=== PATIENT | female | born 1965 | race Caucasian/White ===

== ENCOUNTER 2019-10-22 14:53 | Emergency (ER) | payer OTHER ==
[~2019-10-22] VITALS: Ht 160 cm; Wt 72.6 kg
[2019-10-22 15:03] VITALS: BP 127/70
--- NOTE | 2019-10-22 15:15 | NUR ---
54 Y/O FEMALE BIBA FROM [facility] FOR ONE EPISODE OF UNWITNESSED SYNCOPE TODAY. PT STATES SHE WALKED TO [employer] IN THE MORNING AROUND 10AM, AND FELT VERY WEAK AND TIRED BY THE TIME SHE BEGAN WALKING BACK HOME. UPON ARRIVAL TO HER HOME, PATIENT FELT DIZZY AND ATTEMPTED TO WALK TO HER BED, BUT BELIEVES SHE PASSED OUT BEFORE GETTING TO BED. PATIENT HAS VISIBLE CREASE INDENTATIONS ON BILAT UPPER ARMS, AND IS UNAWARE OF HOW LONG SHE WAS DOWN ON FLOOR FOR. NO NEURO DEFECITS NOTED, PATIENT HAS EQUAL MILD WEAKNESS BUE. PATIENT STATES THAT LEFT SHOULDER IS GIVING HER 6/10 PAIN, BUT IS ABLE TO PERFORM ROM. LAC NOTED ON LEFT THUMB, PATIENT STATES SHE CUT HER FINGER YESTERDAY WHILE CUTTING FRUIT. RESP EQUAL AND UNLABORED. NSR TACHY. PMH:DM2, STROKE ALLERGIES: CODEINE, IBUPROFEN
[2019-10-22] MEDS ORDERED: traMADol 50 MG TAB PO ONE (15:35)
[2019-10-22] MEDS ORDERED: SULFAMETH/TRIMETH DS 800/160MG 1 TAB PO ONE (15:35)
[2019-10-22] MEDS ORDERED: NACL 0.9% 500 ML IV ONE (15:35)
[2019-10-22 15:58] LABS: BASOPHILS % (AUTO) 0.3 % (0.0-2.0); EOSINOPHILS # (AUTO) 0.1 K/uL (0-0.4); EOSINOPHILS % (AUTO) 1.2 % (0.0-4.0); HEMATOCRIT 34.2 % (36-48); HEMOGLOBIN 10.7 g/dL (12.0-16.0); LYMPHOCYTES # (AUTO) 1.9 K/uL (2.5-16.5); LYMPHOCYTES % (AUTO) 23.8 % (20.5-51.1); MEAN CORPUSCULAR HEMOGLOBIN 25 pg (27-31); MEAN CORPUSCULAR HGB CONC 31 g/dL (33-37); MEAN CORPUSCULAR VOLUME 80.1 fL (80-94); MONOCYTES # (AUTO) 0.5 K/uL (0.8-1.0); MONOCYTES % (AUTO) 5.7 % (1.7-9.3); NEUTROPHILS # (AUTO) 5.6 K/uL (1.8-7.7); PLATELET COUNT (AUTO) 122 K/uL (140-450); RED BLOOD CELL COUNT(AUTO) 4.27 MIL/uL (4.20-5.40); RED CELL DISTRIBUTION WIDTH 17.5 % (11.6-13.7); WHITE BLOOD COUNT (AUTO) 8.1 K/uL (4.8-10.8)
[2019-10-22 16:16] LABS: ALBUMIN 3.2 g/dL (3.4-5.0); ANION GAP 14.6 (8-16); CARBON DIOXIDE 26.8 mmol/L (21-32); CREATININE 1.2 mg/dL (0.6-1.3); POTASSIUM 4.4 mmol/L (3.5-5.1); TOTAL BILIRUBIN 0.3 mg/dL (0.0-1.0)
[2019-10-22 16:53] VITALS: BP 125/69
--- NOTE | 2019-10-22 16:53 | NUR ---
Patient discharged with v/s stable. Written and verbal after care instructions given and explained. Patient alert, oriented and verbalized understanding of instructions. Ambulatory with steady gait. All questions addressed prior to discharge. ID band removed. Patient advised to follow up with PMD. Rx of KEFLEX, TRAMADOL given. Patient educated on indication of medication including possible reaction and side effects. Opportunity to ask questions provided and answered.
--- NOTE | 2019-10-25 08:54 | NUR ---
LATE ENTRY-CONFIRMED WITH RN NS INFUSION COMPLETED AT 1640 10/22/19.
== END 2019-10-22 16:53 | disposition home or self-care (01) ==
LOC: MED 14:53
DX: R55 Syncope and collapse (principal); G89.29 Other chronic pain; M54.9 Dorsalgia, unspecified; M25.512 Pain in left shoulder; E11.9 Type 2 diabetes mellitus without complications; Z88.5 Allergy status to narcotic agent; Z88.8 Allergy status to other drugs, medicaments and biological substances; Z90.49 Acquired absence of other specified parts of digestive tract; Z86.73 Personal history of transient ischemic attack (TIA), and cerebral infarction without residual deficits
CPT/HCPCS: 36415; 71045; 72080; 80053; 84484; 85025; 90471; 90715; 93005; 96361; 99285; J7030; Q0092

== ENCOUNTER 2019-11-01 13:52 | Emergency (ER) | payer OTHER ==
[~2019-11-01] VITALS: Ht 162.6 cm; Wt 63.5 kg
[2019-11-01 13:54] VITALS: BP 146/72
--- NOTE | 2019-11-01 13:59 | NUR ---
PT AMBULATED TO BED 5 WITH STEADY GAIT.
--- NOTE | 2019-11-01 15:06 | NUR ---
ERMD AT BEDSIDE.
[2019-11-01 15:22] VITALS: BP 146/72
--- NOTE | 2019-11-01 15:23 | NUR ---
Patient discharged with v/s stable. Written and verbal after care instructions given and explained. Patient verbalized understanding. Ambulatory with steady gait. All questions addressed prior to discharge. Advised to follow up with PMD.
== END 2019-11-01 15:23 | disposition home or self-care (01) ==
LOC: MED 13:52
DX: M79.81 Nontraumatic hematoma of soft tissue (principal); E11.9 Type 2 diabetes mellitus without complications; I63.9 Cerebral infarction, unspecified; Z90.49 Acquired absence of other specified parts of digestive tract; Z88.6 Allergy status to analgesic agent; Z88.5 Allergy status to narcotic agent
CPT/HCPCS: 99281

== ENCOUNTER 2020-01-17 07:57 | Emergency (ER) | payer OTHER ==
[~2020-01-17] VITALS: Ht 160 cm; Wt 88.0 kg
[2020-01-17 08:04] VITALS: BP 177/91
--- NOTE | 2020-01-17 08:14 | NUR ---
BIB SELF FOR Medication Refill: CLONAZEPAM 2 MG. PT REFUSED TO CHECK BLOOD SUGAR AT THIS TIME. PMH: DEPRESSION, ANXIETY, DM
--- NOTE | 2020-01-17 08:14 | NUR ---
PT DEVONTE TO KATHIE Avila
--- NOTE | 2020-01-17 08:58 | NUR ---
Dr. Padilla is evaluating the patient at bedside.
[2020-01-17 09:15] VITALS: BP 132/67
--- NOTE | 2020-01-17 09:15 | NUR ---
Patient discharged with v/s stable. Written and verbal after care instructions given and explained. Patient alert, oriented and verbalized understanding of instructions. Ambulatory with steady gait. All questions addressed prior to discharge. ID band removed. Patient advised to follow up with PMD. Rx of CLONAZEPAM given. Patient educated on indication of medication including possible reaction and side effects. Opportunity to ask questions provided and answered.
== END 2020-01-17 09:15 | disposition home or self-care (01) ==
LOC: MED 07:57
DX: F13.20 Sedative, hypnotic or anxiolytic dependence, uncomplicated (principal); I63.9 Cerebral infarction, unspecified; E11.9 Type 2 diabetes mellitus without complications; Z76.0 Encounter for issue of repeat prescription
CPT/HCPCS: 99281; 99283

== ENCOUNTER 2020-11-20 09:12 | Inpatient (IN) | payer OTHER, SELFPAY ==
[~2020-11-20] VITALS: Ht 160 cm; Wt 83.5 kg
--- NOTE | 2020-11-20 09:25 | NUR ---
55 y/o F BIBA from [facility] c/o weakness, dizziness, chest pain and SOB for 1-2 hours prior to arrival. Patient A&Ox4, ambulatory with assistance, reports acute onset of symptoms this morning upon waking up. Patient states chest pain 5/10, substernal pain pressure/intermittent radiating to back with associated SOB; SpO2 95% on room air. Patient reports feeling weakness, headache, and nausea + vomiting x 6 episodes today "dark red blood past 2 times vomited" and diarrhea. Patient denies dysuria, urinary symptoms, blurry vision, cold-like symptoms, sick household members. Patient denies any medications prior to arrival. nurse monitoring in place showing HR 128, RR @ 12 even/unlabored. 20G IV to R forearm by EMS with 200mL NS 0.9% administered. AccuChek 298. Bed locked in lowest position, side rails x 1, call light in reach. PMH: Dm2, tachycardic, anxiety, depression Meds: wellbutrin, paxil, clonipine, pre-linda A: codeine, ibuprofen, sulfa
--- NOTE | 2020-11-20 09:25 | NUR ---
Patient assisted from SABA ellis onto bed 08, ambulated with assistance
[2020-11-20 09:26] VITALS: BP 137/77
--- NOTE | 2020-11-20 09:30 | NUR ---
Patient desaturated to 88% on room air; placed onto 2L by NC, SpO2 96% at this time.
--- NOTE | 2020-11-20 09:45 | NUR ---
Dr. Colon is evaluating patient at bedside
[2020-11-20] MEDS ORDERED: fentaNYL citrate 0.05 MG/ML VIAL IVP ONE (09:50)
[2020-11-20] MEDS ORDERED: FAMOTIDINE 20 MG/2 ML VIAL IVP ONE (09:50)
[2020-11-20] MEDS ORDERED: NACL 0.9% 1,000 ML IV ONE (09:50)
[2020-11-20] MEDS ORDERED: ONDANSETRON 4 MG/2 ML VIAL IVP ONE (09:50)
--- NOTE | 2020-11-20 10:06 | NUR ---
Patient transported to CT by caleb
--- NOTE | 2020-11-20 10:10 | NUR ---
Blood sample handed to CPT Susan at ER bedside
--- NOTE | 2020-11-20 10:20 | NUR ---
Patient returned from CT and placed back onto business development consultant and IVF.
--- NOTE | 2020-11-20 10:42 | NUR ---
Patient reports unable to void at this time. Dr. Colon made aware to NPO at this time.
[2020-11-20 10:58] LABS: BASOPHILS % (AUTO) 0.1 % (0.0-2.0); EOSINOPHILS % (AUTO) 0.5 % (0.0-4.0); LYMPHOCYTES # (AUTO) 0.8 K/uL (2.5-16.5); LYMPHOCYTES % (AUTO) 8.9 % (20.5-51.1); MEAN CORPUSCULAR HEMOGLOBIN 28 pg (27-31); MEAN CORPUSCULAR HGB CONC 33 g/dL (33-37); MEAN CORPUSCULAR VOLUME 82.3 fL (80-94); MONOCYTES # (AUTO) 0.4 K/uL (0.8-1.0); MONOCYTES % (AUTO) 4.7 % (1.7-9.3); NEUTROPHILS # (AUTO) 7.3 K/uL (1.8-7.7); NEUTROPHILS % (AUTO) 85.8 % (42.2-75.2); PLATELET COUNT (AUTO) 90 K/uL (140-450); RED BLOOD CELL COUNT(AUTO) 4.01 MIL/uL (4.20-5.40); RED CELL DISTRIBUTION WIDTH 16.4 % (11.6-13.7); WHITE BLOOD COUNT (AUTO) 8.6 K/uL (4.8-10.8)
[2020-11-20 11:00] LABS: ANION GAP 12.4 (8-16); CARBON DIOXIDE 27.4 mmol/L (21-32); CREATININE 1.2 mg/dL (0.6-1.3); POTASSIUM 3.8 mmol/L (3.5-5.1)
[2020-11-20 11:04] LABS: ALBUMIN 2.9 g/dL (3.4-5.0); TOTAL BILIRUBIN 0.3 mg/dL (0.0-1.0)
[2020-11-20 11:11] LABS: PROTHROMBIN TIME 10.2 secs (10.8-13.4)
--- NOTE | 2020-11-20 12:19 | NUR ---
Dr. Colon is reevaluating patient at bedside
--- NOTE | 2020-11-20 14:30 | NUR ---
Patient resting in semi-fowlers position with director cardiac in place. All pt needs met. HR 113, respirations even/unlabored SpO2 96% on 2L NC. Bed locked in lowest position, side rails x 1, call light in reach.
[2020-11-20 14:40] LABS: APPEARANCE,URINE CLEAR (CLEAR); BILIRUBIN,URINE NEGATIVE (NEGATIVE); BLOOD, URINE NEGATIVE (NEGATIVE); COLOR,URINE YELLOW (YELLOW); LEUKOCYTE ESTERASE ,URINE NEGATIVE (NEGATIVE); NITRITE, URINE NEGATIVE (NEGATIVE); UGLUCOSE 3+ (NEGATIVE)
[2020-11-20] MEDS ORDERED: CLON2TAB9 PO (15:27)
[2020-11-20] MEDS ORDERED: PREG25CA PO (15:27)
[2020-11-20] MEDS ORDERED: BUPR200T1 PO (15:27)
[2020-11-20] MEDS ORDERED: BUS5 PO (15:27)
[2020-11-20] MEDS ORDERED: INSU100I7 SQ (15:27)
[2020-11-20] MEDS ORDERED: PAX20 PO (15:27)
[2020-11-20] MEDS ORDERED: KCL 20 MEQ/WATER INJ PREMIX 200 ML IV PRN (16:15)
[2020-11-20] MEDS ORDERED: ACETAMINOPHEN 325 MG TAB PO PRN (16:15)
[2020-11-20] MEDS ORDERED: MAGNESIUM OXIDE 400 MG TAB PO PRN (16:15)
[2020-11-20] MEDS ORDERED: ZOLPIDEM 5 MG TAB PO PRN (16:15)
[2020-11-20] MEDS ORDERED: ONDANSETRON 4 MG/2 ML VIAL IVP PRN (16:15)
[2020-11-20] MEDS ORDERED: POTASSIUM CHLORIDE 10 MEQ TABER PO PRN (16:15)
[2020-11-20] MEDS ORDERED: MAG SULF 2000 MG/WATER PREMIX 50 ML IV PRN (16:15)
--- NOTE | 2020-11-20 16:30 | NUR ---
Dr. Grimm is evaluating patient at bedside
--- NOTE | 2020-11-20 16:30 | NUR ---
Dr. Grimm made aware of patient's increasing lethargy.
--- NOTE | 2020-11-20 16:40 | NUR ---
Dr. Grimm states to start diet and encourage water intake.
[2020-11-20] MEDS: INSULIN LISPRO SLIDING SCALE 100 UNITS/ML VIAL SUBQ PRN ×2 (16:44→22:26)
--- NOTE | 2020-11-20 16:45 | NUR ---
Dr. Grimm requested to turn off oxygen to see baseline.
--- NOTE | 2020-11-20 16:52 | NUR ---
Patient desaturated to 79% on room air. Patient states she feels SOB without the oxygen. Patient placed back onto 2L NC SpO2 99% laying on R side in semi-fowlers position. Bed locked in lowest position, side rails x 1, call light in reach.
[2020-11-20] MEDS: PREGABALIN 25 MG CAP PO SCH (16:58)
[2020-11-20] MEDS: clonazePAM 0.5 MG TAB PO SCH (16:58)
[2020-11-20] MEDS: PANTOPRAZOLE 40 MG TABEC PO SCH (16:58)
--- NOTE | 2020-11-20 17:54 | NUR ---
Dinner tray at bedside
--- NOTE | 2020-11-20 18:32 | NUR ---
ACCUCHEK 251; PATIENT COMPLETED 20% OF DINNER MEAL PRIOR TO ACCUCHEK READING
--- NOTE | 2020-11-20 18:37 | NUR ---
Patient without NC in place SpO2 96% on room air. No distress noted. Denies nausea, states 7/10 abdominal pain.
--- NOTE | 2020-11-20 19:23 | NUR ---
Report and transfer of care endorsed to BLESSING Hector.
--- NOTE | 2020-11-20 19:31 | NUR ---
ASSUMED CARE OF PATIENT AT THIS TIME.
[2020-11-20] MEDS: buPROPion 100 MG TAB PO SCH (21:00)
[2020-11-20] MEDS ORDERED: busPIRone 5 MG TAB PO SCH (21:00)
--- NOTE | 2020-11-20 21:35 | NUR ---
REPORT HAI TO SUNDAR FUNK AT THIS [facility]. TO BE TRANSFERRED TELE TO BED 123B
--- NOTE | 2020-11-20 22:00 | NUR ---
RECEIVED REPORT AND PATIENT FROM ED BARBIE RN FOR ADMIT TO [facility] ROOM 123B. PT ARRIVED VIA GURNEY AAOX4, AMBULATED WITH MIN ASSIST AND STEADY GAIT. NO APPARENT S/S OF ACUTE DISTRESS. BREATHING EVEN AND UNLABORED ON 2L NC WITH O2 SAT OF 98%. NO C/O CP, SOB OR PAIN. R FA 20G INTACT/PATENT. POC AND WHITE COMMUNICATION BOARD UPDATED. BED IN LOW/LOCKED POSITION. CALL LIGHT WITHIN REACH. PT ENCOURAGED TO CALL FOR ANY NEEDS/ASSISTANCE. WILL CONTINUE TO MONITOR.
[2020-11-20 22:47] VITALS: BP 115/66
[2020-11-21 04:00] VITALS: BP 92/58
[2020-11-21 06:06] LABS: BASOPHILS % (AUTO) 0.2 % (0.0-2.0); EOSINOPHILS # (AUTO) 0.1 K/uL (0-0.4); EOSINOPHILS % (AUTO) 1.4 % (0.0-4.0); HEMATOCRIT 31.5 % (36-48); HEMOGLOBIN 10.3 g/dL (12.0-16.0); LYMPHOCYTES # (AUTO) 2.1 K/uL (2.5-16.5); LYMPHOCYTES % (AUTO) 22.9 % (20.5-51.1); MEAN CORPUSCULAR HEMOGLOBIN 28 pg (27-31); MEAN CORPUSCULAR HGB CONC 33 g/dL (33-37); MEAN CORPUSCULAR VOLUME 83.7 fL (80-94); MONOCYTES # (AUTO) 0.5 K/uL (0.8-1.0); MONOCYTES % (AUTO) 5.2 % (1.7-9.3); NEUTROPHILS # (AUTO) 6.5 K/uL (1.8-7.7); NEUTROPHILS % (AUTO) 70.3 % (42.2-75.2); PLATELET COUNT (AUTO) 92 K/uL (140-450); RED BLOOD CELL COUNT(AUTO) 3.76 MIL/uL (4.20-5.40); RED CELL DISTRIBUTION WIDTH 16.5 % (11.6-13.7); WHITE BLOOD COUNT (AUTO) 9.2 K/uL (4.8-10.8)
[2020-11-21 06:44] LABS: ALBUMIN 2.5 g/dL (3.4-5.0); ANION GAP 9.9 (8-16); CARBON DIOXIDE 28.7 mmol/L (21-32); CHOL/HDL RATIO 2.4 (1-4.5); CREATININE 0.9 mg/dL (0.6-1.3); MAGNESIUM 1.8 mg/dL (1.8-2.4); POTASSIUM 3.6 mmol/L (3.5-5.1); TOTAL BILIRUBIN 0.5 mg/dL (0.0-1.0)
--- NOTE | 2020-11-21 06:57 | NUR ---
REPORT GIVEN TO KIANA FUNK FOR CONTINUITY OF CARE. PT SITTING UP AAOX4. NO APPARENT S/S OF ACUTE DISTRESS. BREATHING EVEN AND UNLABORED. BED IN LOW/LOCKED POSITION. CALL LIGHT WITHIN REACH. ALL NEEDS MET AT THIS TIME.
--- NOTE | 2020-11-21 07:07 | NUR ---
PATIENT HAS BEEN SCREENED AND CATEGORIZED MODERATE NUTRITION RISK. PATIENT WILL BE SEEN WITHIN 3-5 DAYS OF ADMISSION. 11/23/20 11/25/[address]
[2020-11-21 08:00] VITALS: BP 133/77
--- NOTE | 2020-11-21 08:00 | NUR ---
Received pt in bed A+OX3 and in no acute distress. Pt hand off was done by night cleaner RN. Safety and comfort maintained.
[2020-11-21] MEDS ORDERED: PARoxetine 20 MG TAB PO SCH (09:00)
[2020-11-21] MEDS ORDERED: ENOXAPARIN 40 MG/0.4 ML SYR SUBQ SCH (09:00)
[2020-11-21] MEDS ORDERED: busPIRone 5 MG TAB PO SCH ×2 (09:00→10:31)
[2020-11-21] MEDS ORDERED: INSULIN LANTUS 100 UNITS/ML 10 ML VIAL SUBQ SCH (09:00)
[2020-11-21] MEDS: buPROPion 100 MG TAB PO SCH (09:48)
[2020-11-21] MEDS: PANTOPRAZOLE 40 MG TABEC PO SCH (09:51)
[2020-11-21] MEDS: clonazePAM 0.5 MG TAB PO SCH (09:52)
[2020-11-21] MEDS: PREGABALIN 25 MG CAP PO SCH (10:25)
[2020-11-21 12:00] VITALS: BP 120/75
--- NOTE | 2020-11-21 12:24 | NUR ---
DC PLANNING: TANMAY SPOKE WITH THE PATIENT AT BEDSIDE. THE PATIENT LIVES AT [facility] WHICH IS AN INDEPENDENT LIVING COMPLEX. THE PATIENT HAS HER OWN APARTMENT, AND STATES THAT SHE IS INDEPENDENT IN ALL ACTIVITIES. SHE DOES NOT SEE HER PCP REGULARLY, AND SOMETIMES REQUIRES A FWW WHEN AMBULATING. ANTICIPATE THAT THE PATIENT WILL DC TODAY, CARDIOLOGY HAS ALREADY CONSULTED ON HER, CM WILL NEED TO ARRANGE TRANSPORT WITH [facility]. PER ATTENDING MD PT NEEDS TO SEE THE PATIENT AND SHE NEEDS TO BE OFF O2 PRIOR TO DC. CM WILL FOLLOW FOR NEEDS. Addendum: 11/21/20 at 1551 by Rosalinda Mckeon CM DC PLANNING: PATIENT AMBULATED WITH PT AND DESATTED TO 80%. PATIENT WAS NOT SOB WHEN TANMAY INTERVIEWED HER AND SHE WAS ON RA AT THAT TIME. TANMAY ENDORSED THIS TO DR BONILLA, HE STATED THAT HE WILL ORDER HOME O2. BECAUSE THE PATIENT LIVES ALONE TANMAY CALLED HER DAUGHTER TO DISCUSS ARRANGEMENTS FOR DELIVERY. HER DAUGHTER STATED THAT SHE WAS UNHAPPY THAT SHE HASN'T SPOKEN WITH THE MD AND THAT SHE WOULD NOT CONTINUE THE CONVERSATION WITH TANMAY UNTIL SHE SPOKE WITH DR BONILLA. TANMAY ASKED DR BONILLA TO CALL THE DAUGHTER WHICH HE STATED HE WOULD, ALSO DISCUSSED THAT HE ENTERED AN ORDER FOR RT RE-EVAL TO SEE IF THE PATIENT NEEDS HOME O2. TANMAY SPOKE WITH RT WHO STATED THAT THE PATIENT IS SATTING 89 TO 91%. ALSO SPOKE WITH ZOHREH FUNK WHO STATES THAT THE PATIENTS DAUGHTER IS AT BEDSIDE AND HAS A QUESTION ABOUT THE PATIENT DC'ING ON HOME O2. CM ENDOSED THAT PER RT ASSESSMENT THE PATIENTS SATS DO NOT MEET CRITERIA FOR HOME O2 TO BE COVERED BY INSURANCE. PER STAFF THE DAUGHTER IS STATING THAT SHE DOSE NOT WANT THE PATIENT TO DC ON O2 AND IS STATING THAT THE PATIENT IS UNINSURED (PATIENT HAS IEHP). CM LET DR BONILLA KNOW ABOUT JENNIFER MCLAIN MD STATES THAT PATIENT IS STABLE TO GO AND THAT A DC ORDER HAS BEEN ENTERED. CM WILL FOLLOW FOR NEEDS. Addendum: 11/23/20 at 1414 by Nati Menchaca CM GABRIELLA CALLED PATIENT'S PCP MD IVAN Valentine ENDO OFFICE AT [phone] [place] [id number] TO SET UP A FOLLOW UP APPOINTMENT FOR PATIENT AFTER HER DC FROM [facility]. SPOKE TO JAYDON WHO WAS ABLE TO SCHEDULED A TELEHEALTH APPT. FOR PATIENT ON 11/30/2020 AT 10:00AM. GABRIELLA SPOKE TO PATIENT TO DISCUSS PATIENT'S APPOINMENT WITH PCP. VIA TELEHEALTH. PROVIDED DATE, TIME FOR APPOINMENT. PATIENT THANKED THESE TREATMENT SPECIALIST AND ENDED THE CALL.
--- NOTE | 2020-11-21 13:18 | NUR ---
WOUND CARE NOTE: SKIN ASSESSMENT DONE. NO OPEN ACTIVE WOUND. LEFT 5TH TOE 0.5X0.5CM LIGHT BROWN COLOR STABLE THIN DRY SCAB, NO PAIN. POC DISCUSSED WITH PT. PT. VERBALIZES UNDERSTANDING
--- NOTE | 2020-11-21 13:32 | NUR ---
PATIENT ON ROOM AIR - SATURATING AT MID 90S ON ROOM AIR. WHEN CHECKED PATIENT WAS SATURATING 94% ON ROOM AIR WITHOUT ANY DISTRESS NOTED. PT TOLERATING WELL ON ROOM AIR.
--- NOTE | 2020-11-21 15:30 | NUR ---
with physical therapy, rn , rt, and family patient walked around her room with her walker and saturations were documented as ranging from 90-96 on room air. patient stated that she did not feel in distress at this time. patient walks with a walker at home. family at bedside witnessed saturations and questioned placement of pulse ox that was on patients finger snug at all times during walk.
[2020-11-21 16:00] VITALS: BP 126/75
--- NOTE | 2020-11-21 16:40 | NUR ---
Discussed with pts daughter regarding pts plan of care(plan:pt to maintain oxygen saturation >95% on RA, pt will ambulate with PT and to maintain oxygen saturation >95%RA and pt to be cleared by cardiology per MD Grimm.Pts daughter expressed concerns of her mother to be d/c on oxygen and stated "why does my mom need oxygen to go home when she didn't have any respiratory issue when admitted to the hospital"? Per PT,pt was previously noted prior with low oxygen saturation. Approx 3pm-Pt was reevaluated by PT service and ambulated in bedroom, tolerated well; pt maintained oxygen sat at 96%RA, HR 106 and denied any chest, sob or heart palpitations and was cleared for d/c. Discharge instructions was discussed by BLESSING Garcia;pt and pts daughter verbalized understanding. Pts daughter questions and concerns were addressed by nurse belt and link assembly supervisor Renay. 4:16pm-Pt was safely discharged accompanied by pts daughter.
[2020-11-21] MEDS ORDERED: buPROPion 100 MG TAB PO SCH (21:00)
[2020-11-22] MEDS ORDERED: HYDRAGUARD CREAM TP SCH (01:00)
== END 2020-11-21 16:20 | disposition home or self-care (01) | DRG 241 ==
LOC: MED 09:12 → MTU 16:17 → OBSVTOIN 11-21 11:52
PROVIDERS: ADMIT Internal Medicine; ATTEND Internal Medicine
DX: K29.70 Gastritis, unspecified, without bleeding (principal); E44.1 Mild protein-calorie malnutrition; E11.9 Type 2 diabetes mellitus without complications; R11.2 Nausea with vomiting, unspecified; E66.9 Obesity, unspecified; I10 Essential (primary) hypertension; F31.9 Bipolar disorder, unspecified; R00.0 Tachycardia, unspecified; Z20.822 Contact with and (suspected) exposure to COVID-19; Z88.6 Allergy status to analgesic agent; Z86.73 Personal history of transient ischemic attack (TIA), and cerebral infarction without residual deficits; Z88.5 Allergy status to narcotic agent; Z68.32 Body mass index [BMI] 32.0-32.9, adult
CPT/HCPCS: 96361; 96372; 96374; 96375; 99285; G0378; 36415; 71045; 80053; 81003; 82948; 83036; 83690; 83735; 84484; 85025; 85610; 85730; 87081; 93005; 94617; 94761; 97116; 97163-GP; J1650; J1815; J2405; J3490; Q0092

== ENCOUNTER 2023-09-27 18:36 | Emergency (ER) | payer OTHER ==
[~2023-09-27] VITALS: Ht 160 cm; Wt 63.5 kg
[~2023-09-27 18:36] MED LIST: BUPR200T1 PO; BUS5 PO; CLON2TAB9 PO; HYDR-5071 PO; INSU100I7 SQ; PAX20 PO; PREG25CA28 PO
[2023-09-27 18:40] VITALS: BP 147/78; PULSE 108; RESP 24; TEMP 98.3; O2SAT 100
[2023-09-27 18:56] VITALS: TEMP 98.3
[2023-09-27 19:33] LABS: BASOPHILS % (AUTO) 0.4 % (0.0-2.0); EOSINOPHILS # (AUTO) 0.2 K/uL (0-0.4); EOSINOPHILS % (AUTO) 3.8 % (0.0-4.0); HEMOGLOBIN 9.7 g/dL (12.0-16.0); LYMPHOCYTES # (AUTO) 1.1 K/uL (2.5-16.5); LYMPHOCYTES % (AUTO) 26.4 % (20.5-51.1); MEAN CORPUSCULAR HEMOGLOBIN 28 pg (27-31); MEAN CORPUSCULAR HGB CONC 33 g/dL (33-37); MEAN CORPUSCULAR VOLUME 83.9 fL (80-94); MONOCYTES # (AUTO) 0.4 K/uL (0.8-1.0); MONOCYTES % (AUTO) 8.6 % (1.7-9.3); NEUTROPHILS # (AUTO) 2.6 K/uL (1.8-7.7); NEUTROPHILS % (AUTO) 60.8 % (42.2-75.2); PLATELET COUNT (AUTO) 156 K/uL (140-450); RED BLOOD CELL COUNT(AUTO) 3.45 MIL/uL (4.20-5.40); RED CELL DISTRIBUTION WIDTH 15.6 % (11.6-13.7); WHITE BLOOD COUNT (AUTO) 4.2 K/uL (4.8-10.8)
[2023-09-27 19:41] VITALS: BP 132/66; PULSE 102; RESP 13
[2023-09-27 19:54] VITALS: O2SAT 100
[2023-09-27 20:06] LABS: APPEARANCE,URINE CLEAR (CLEAR); BILIRUBIN,URINE NEGATIVE (NEGATIVE); BLOOD, URINE NEGATIVE (NEGATIVE); COLOR,URINE YELLOW (YELLOW); LEUKOCYTE ESTERASE ,URINE NEGATIVE (NEGATIVE); NITRITE, URINE NEGATIVE (NEGATIVE); PH,URINE 6.5 (5.0-9.0); PROTEIN,URINE TRACE (NEGATIVE); UGLUCOSE 2+ (NEGATIVE); UROBILINOGEN,URINE 0.2 EU/dL (0.2 - 1)
[2023-09-27 20:16] LABS: ALBUMIN 2.9 g/dL (3.4-5.0); ANION GAP 16.4 (8-16); CALCIUM 9.1 mg/dL (8.5-10.1); CARBON DIOXIDE 24.1 mmol/L (21-32); CREATININE 1.9 mg/dL (0.6-1.3); POTASSIUM 3.5 mmol/L (3.5-5.1); TOTAL BILIRUBIN 0.5 mg/dL (0.0-1.0); TOTAL PROTEIN, SERUM 7.4 g/dL (6.4-8.2)
[2023-09-27 20:30] LABS: BACTERIA,URINE None Seen /HPF (None Seen); MUCUS,URINE 1+ /LPF (None Seen); RBC,URINE 0-5 /HPF (0-5); SQUAMOUS EPITHELIAL CELL,UR 4-10 (MOD) /LPF (0-3 (FEW)); WBC,URINE 0-5 /HPF (0-5)
[2023-09-27 20:31] LABS: TRICHOMONAS,URINE None Seen /HPF (None Seen); YEAST,URINE None Seen /HPF (None Seen)
== END 2023-09-27 21:03 | disposition home or self-care (01) ==
LOC: MED 18:36
DX: E11.65 Type 2 diabetes mellitus with hyperglycemia (principal); F41.9 Anxiety disorder, unspecified; Z98.890 Other specified postprocedural states; Z86.73 Personal history of transient ischemic attack (TIA), and cerebral infarction without residual deficits; Z79.899 Other long term (current) drug therapy; Z88.2 Allergy status to sulfonamides; Z88.5 Allergy status to narcotic agent; Z88.6 Allergy status to analgesic agent
CPT/HCPCS: 36415; 80053; 81001; 82803; 82948; 85025; 99283